=== PATIENT | female | born 1940 | race Caucasian/White ===

== ENCOUNTER → 2019-08-18 | Outpatient (CLI) | payer MEDICARE, BC ==
--- NOTE | 2019-08-18 11:08 | Diagnostic Imaging Report ---
EXAMINATION: Chest 2 view HISTORY: Fall. Left-sided chest and rib pain. COMPARISON: None. FINDINGS: There is elevation of the right hemidiaphragm. Right basilar opacities are present. No large pleural effusion or pneumothorax is seen. The cardiomediastinal silhouette is normal in size and contour. No acute osseous abnormality is seen. Exaggerated kyphosis of the thoracic spine is seen. IMPRESSION: 1. Elevated right hemidiaphragm with right basilar opacities. These may represent atelectasis and/or infection. No evidence of large pleural effusion or pneumothorax. Dictated by: Dictated on workstation # [id number]
--- NOTE | 2019-08-18 11:08 | Diagnostic Imaging Report ---
INDICATION: Fall with neck pain. TIME OF EXAM 10:46 AM FINDINGS: Cervicothoracic alignment appears normal. Curvature and alignment are normal. The odontoid appears intact. Prevertebral tissues are within normal limits for generalized cervical spondylosis with variable disc space narrowing and spurring. No fractures are seen. IMPRESSION: Cervical spondylosis. No acute bony abnormality is detected. Dictated by: Dictated on workstation # [id number]
== END ==
LOC: RAD FS 10:29
PROVIDERS: ATTEND Emergency Medicine
DX: S20.219A Contusion of unspecified front wall of thorax, initial encounter (principal); M47.812 Spondylosis without myelopathy or radiculopathy, cervical region; R91.8 Other nonspecific abnormal finding of lung field; W19.XXXA Unspecified fall, initial encounter
CPT/HCPCS: 71046; 72040

== ENCOUNTER → 2021-04-16 | Outpatient (CLI) | payer MEDICARE, BC ==
--- NOTE | 2021-04-16 13:34 | Diagnostic Imaging Report ---
PROCEDURE: CT head without contrast. TECHNIQUE: Multiple contiguous axial images were obtained through the brain without the use of intravenous contrast. Auto Exposure Controls were utilized during the CT exam to meet ALARA standards for radiation dose reduction. INDICATION: Acute intractable headache. COMPARISON: None available. FINDINGS: Age-appropriate volume loss. No intracranial hemorrhage. No intracranial mass, mass effect, midline shift, herniation, hydrocephalus, or extra-axial fluid collection. No CT evidence of an acute ischemic infarction. The bilateral ocular lenses are absent. Mild background vascular calcifications. The calvarium and extra calvarial soft tissues are otherwise unremarkable. The paranasal sinuses are clear. Mild expansion of the sella is noted with a partially empty sella identified. IMPRESSION: No acute intracranial abnormality with age-appropriate volume loss and background vascular calcifications identified. Partially empty sella is incidentally noted. Dictated by: Dictated on workstation # [id number]
== END ==
LOC: RAD FS 12:49
PROVIDERS: ATTEND Family Medicine
DX: G31.1 Senile degeneration of brain, not elsewhere classified (principal)
CPT/HCPCS: 70450

== ENCOUNTER → 2022-06-29 | Outpatient (CLI) | payer MEDICARE, BC ==
[~2022-06-29] MED LIST: GADOTERATE 0.5 MMOL/ML (CLARISCAN) 20 ML VIAL IV ONE
--- NOTE | 2022-06-29 15:23 | Diagnostic Imaging Report ---
MRI brain with and without contrast Technique: Multiplanar, multisequence MRI of the brain was performed with and without contrast. Indication: Headaches. Comparison: CT head, 04/16/2021. Findings: The diffusion series demonstrates no restriction to suggest acute ischemia. There is no MR evidence of acute intracranial hemorrhage. There is no evidence of intracranial mass effect or shift. Age-appropriate global cerebral volume loss is demonstrated. There are mild background chronic microvascular ischemic changes demonstrated within the subcortical and periventricular white matter. There is a small lacune within the deep white matter of the left frontal lobe. Jones and white matter signal characteristics are otherwise unremarkable. There is no abnormal extra-axial fluid collection. The ventricles are appropriate in size and configuration. The basilar cisterns are patent. Pituitary gland and pineal region appear normal. There is normal alignment of the craniocervical junction. No acute posterior fossa abnormality is demonstrated. There is no evidence of pathologic intracranial enhancement. The mastoids are clear. The paranasal sinuses are clear. The orbital contents are unremarkable. Expected arterial and dural venous sinus flow voids appear preserved. Impression: 1. No MR evidence of an acute intracranial abnormality. There is no evidence of acute ischemia, hemorrhage, intracranial mass effect, hydrocephalus, or pathologic intracranial enhancement. 2. Age-appropriate global cerebral volume loss. Mild chronic microvascular ischemic changes are demonstrated throughout the white matter. Dictated by: Dictated on workstation # [id number]
== END ==
LOC: RAD 13:20
PROVIDERS: ATTEND Family Medicine
DX: I67.89 Other cerebrovascular disease (principal); Z82.49 Family history of ischemic heart disease and other diseases of the circulatory system
CPT/HCPCS: 70553

== ENCOUNTER → 2022-07-01 | Outpatient (CLI) | payer MEDICARE, BC | LOC: CARDFS 09:33 | PROVIDERS: ATTEND Internal Medicine Cardiovascular Disease | DX: I08.0 Rheumatic disorders of both mitral and aortic valves (principal); I11.9 Hypertensive heart disease without heart failure; I25.10 Atherosclerotic heart disease of native coronary artery without angina pectoris | CPT/HCPCS: 93306 ==

== ENCOUNTER → 2022-07-14 | Outpatient (CLI) | payer MEDICARE, BC ==
[~2022-07-14] VITALS: Ht 165 cm; Wt 105.0 kg
[~2022-07-14] MED LIST changes: -GADOTERATE 0.5 MMOL/ML (CLARISCAN) 20 ML VIAL IV ONE; +REGADENOSON 0.4 MG/5 ML SYR (LEXISCAN) IV ONE
[2022-07-14] MEDS: CATHETER FLUSH 10 ML SYR IVP PRN ×2 (12:29→13:33)
[2022-07-14 13:33] VITALS: BP 126/79
--- NOTE | 2022-07-14 15:44 | Cardiology Stress Test Report ---
Stress Test Report Date of Procedure/Referring: Date of Procedure: July 14, 2022 PCP Kem Damico MD Admitting Physician Admitting Physician: Attending Physician: Darek Jon MD Indications: CP Baseline Heart Rate: 80 Baseline Blood Pressure: Blood Pressure Systolic: 126 Blood Pressure Diastolic: 79 Baseline Vitals Vital Signs Date Time Temp Pulse Resp B/P (MAP) Pulse Ox O2 Delivery O2 Flow Rate FiO2 07/14/22 13:33 83 16 126/79 (95) 95 Room Air Baseline EKG: Baseline EKG: NSR Summary After explaining the procedure to the patient, she signed a consent and then brought to the stress nuclear laboratory. Patient received 0.4 mg Lexiscan for stress test, ECG, heart rate and blood pressure were monitored continuously. Resting and stress dose of radio tracer were injected, imaging was acquired and reviewed in short axis, horizontal long axis and vertical long axis views. TID: 1.02 SSS: 2 SDS: 2 EF: 65 Patient tolerated Lexiscan well No significant ischemia or infarction on SPECT images Normal left ventricular size, ejection fraction 65% Copy Copies To 1: KEM DAMICO MD, BASHAR J MD July 14, 2022 15:44
== END ==
LOC: CARD 12:45
PROVIDERS: ATTEND Internal Medicine Cardiovascular Disease
DX: I10 Essential (primary) hypertension (principal); I25.10 Atherosclerotic heart disease of native coronary artery without angina pectoris; R07.2 Precordial pain
CPT/HCPCS: 78452; 93017; A9502

== ENCOUNTER 2023-02-04 08:46 | Emergency (ER) | payer MEDICARE, BC ==
[~2023-02-04] VITALS: Ht 162.6 cm; Wt 128.4 kg
[~2023-02-04 08:46] MED LIST changes: +APIX5TAB PO; -REGADENOSON 0.4 MG/5 ML SYR (LEXISCAN) IV ONE
[2023-02-04] MEDS ORDERED: oxyCODONE IMMEDIATE RELEASE 5 MG TABLET PO ONE (09:00)
--- NOTE | 2023-02-04 09:02 | ED Fall/Injury ---
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 She has left hip and ankle pain. She is up-to-date on tetanus. She takes no blood thinners. She did not hit her head, denies any headache, neck pain, or back pain. She states the fall was actually quite gentle. Allergies and Home Medications Allergies Coded Allergies: No Known Drug Allergies (Unverified , 06/29/22) Patient Home Medication List Home Medication List Reviewed: Yes Apixaban (Eliquis) 5 Mg Tablet, 10 MG PO BID Prescribed by: PRIYANKA ANDERSON on 11/27/22 2681 Review of Systems Review of Systems Constitutional: No fever Eyes: No Symptoms Reported Ears, Nose, Mouth, Throat: no symptoms reported Respiratory: no symptoms reported Cardiovascular: no symptoms reported Gastrointestinal: no symptoms reported Genitourinary: no symptoms reported Musculoskeletal: see HPI Skin: see HPI Psychiatric/Neurological: No Symptoms Reported Past Dcpwmjl-Adjfxn-Lvqtuv Hx Patient Social History Tobacco Use?: No Substance use?: No Alcohol Use?: No Past Medical History Surgery/Hospitalization HX: CAD, Hypertension, Diet controlled Diabetes, Right AKA Surgeries: Yes Coronary Stent, Orthopedic Physical Exam Vital Signs Vital Signs - First Documented 02/04/23 08:48 Temp 36.4 Pulse 124 Resp 18 B/P (MAP) 132/113 (119) O2 Delivery Room Air Capillary Refill : Height, Weight, BMI Height: '" Weight: lbs. oz. kg; 40.00 BMI Method: General Appearance: WD/WN, no apparent distress HEENT: PERRL/EOMI, normal ENT inspection, pharynx normal Neck: non-tender, full range of motion, supple, normal inspection Cardiovascular: regular rate, rhythm, no edema Respiratory: chest non-tender, lungs clear, normal breath sounds, no respiratory distress, no accessory muscle use Gastrointestinal: normal bowel sounds, non tender, soft; No distended, No guarding, No rebound Back: normal inspection, no CVA tenderness Extremities: normal range of motion, non-tender, normal inspection, no pedal edema, no calf tenderness, normal capillary refill 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, no motor/sensory deficits, a lert, normal mood/affect, oriented x 3 Skin: normal color, warm/dry, other (4cm subcutaneous laceration to the left lateral tripp) [place] Coma Score Best Eye Response: (4) Open Spontaneously Best Verbal Response: (5) Oriented Best Motor Response: (6) Obeys Commands Procedures/Interventions Wound Location: Lower Extremities Other Wound Location left lateral tripp Wound Length (cm): 4 Wound's Depth, Shape: sub Q Wound Explored: clean Irrigated w/ Saline (ccs): 500 Anesthesia: Lidocaine w/ Epi Volume Anesthetic (ccs): 8 Suture: Ethlion Suture Size: 4-0 Other Closure Supply: Steri Strip /" Number of Sutures: 1 Progress A single running stitch was utilized with 17 passes Progress/Results/Core Measures Results/Orders My Orders Orders - VANNESA GARCIA MD Ankle 3 View Left (02/04/23 08:56) Pelvis With Left Hip 2-3 View (02/04/23 08:56) Tibia Fibula 2 View Left (02/04/23 08:56) Oxycodone Immediate Rel Tablet (Oxycodon (02/04/23 09:00) Ekg Tracing (02/04/23 09:02) Medications Given in ED Current Medications Medications Dose Ordered Sig/Margaret Route Start Time Stop Time Status Last Admin Dose Admin Oxycodone HCl 5 mg ONCE ONCE PO 02/04/23 09:00 02/04/23 09:01 DC 02/04/23 09:06 5 MG Vital Signs/I&O 02/04/23 08:48 Temp 36.4 Pulse 124 Resp 18 B/P (MAP) 132/113 (119) O2 Delivery Room Air Progress Progress Note : Progress Note 83-year-old female with above history coming in due to a gentle fall where her left leg went to cross the sharp part of her wheelchair causing a 4 cm laceration to left lateral leg. She is neurovascularly intact in the lower extremity. She is little tachycardic but in pain, given oxycodone for this. X- ray of the pelvis, left hip, left tib-fib, left ankle ordered and interpreted by me showing no fracture or dislocation that is new. Tetanus is up-to-date. The area was cleaned, lidocaine infiltrated, closed with a single running suture with reinforcement from the Steri-Strips. Patient tolerated this well. She never really hit her head or neck, and never really fell with any type of force that would make me want to get a CT of her head or C-spine. Additionally she is not on blood thinners. I believe she is stable for discharge with outpatient follow-up. She was sent home with strict return precautions. Initial ECG Impression Date: Feb 04, 2023 Initial ECG Impression Time: 10:21 Initial ECG Rate: 117 Initial ECG Rhythm: S.Tach Comment Narrow QRS, normal axis, no STEMI Diagnostic Imaging Diagonstic Imaging: Xray (pelvis/left hip, left tib fib, left ankle) Comments [facility] [employer] [place], [place] NAME: EMETERIO KELLER [facility] REC#: [id number] PT STATUS: REG ER : 1940 PHYSICIAN: VANNESA GARCIA MD ADMIT DATE: 02/04/23/ER FS Draft Date of Exam:02/04/23 ANKLE 3 VIEW LEFT HISTORY: Fall, left ankle pain TECHNIQUE: 3 views of the left ankle COMPARISON: None FINDINGS: There is diffuse osteopenia. No acute fracture seen in the left ankle. Alignment is normal. Ankle mortise is symmetric. There is ifhrlana-fn-tnqzvq soft tissue swelling about the left ankle. There are degenerative changes in the midfoot. IMPRESSION: 1. Degenerative changes and low bone density in the left ankle with no acute osseous abnormality seen. 2. Soft tissue swelling about the left ankle. Dictated on workstation # [id number] Dict: 02/04/23 0956 Trans: 02/04/23 1003 LORA [id number] Interpreted by: ZACARIAS RODRIGUEZ MD Electronically signed by: [facility] [employer] [place] NAME: EMETERIO KELLER [facility] REC#: [id number] PT STATUS: REG ER : 1940 PHYSICIAN: VANNESA GARCIA MD ADMIT DATE: 02/04/23/ER FS Draft Date of Exam:02/04/23 TIBIA FIBULA 2 VIEW LEFT HISTORY: Fall, left leg laceration. TECHNIQUE: 2 views of the left tibia and fibula. COMPARISON: None FINDINGS: No acute fracture seen in the left tibia and fibula. Alignment is normal. There is a left total knee arthroplasty as well as an intramedullary fixation of the femur with chronic posttraumatic deformity of the femur. 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 There is moderate soft tissue swelling about the left leg with a laceration of the lateral left leg and soft tissue gas. There is overlying skin blistering. No radiopaque foreign body is seen. IMPRESSION: 1. Lateral left leg laceration and soft tissue gas with no acute osseous abnormality or radiopaque foreign body seen. Dictated on workstation # [id number] Dict: 02/04/23 0957 Trans: 02/04/23 1005 CV [id number] Interpreted by: ZACARIAS RODRIGUEZ MD Electronically signed by: [facility] [place] [place] NAME: EMETERIO KELLER [facility] REC#: [id number] PT STATUS: REG ER : 1940 PHYSICIAN: VANNESA GARCIA MD ADMIT DATE: 02/04/23/ER FS Draft Date of Exam:02/04/23 PELVIS WITH LEFT HIP 2-3 VIEW HISTORY: Fall, left hip pain. TECHNIQUE: Frontal view of the pelvis. Frontal and lateral views of the left hip. COMPARISON: CT abdomen and pelvis from 11/27/2022. FINDINGS: Bone density is diffusely low. There are severe degenerative changes in the left hip joint and moderate degenerative change in the right hip joint. No acute fracture is seen. There is posterior fusion of the lumbosacral spine, extending into the sacroiliac joints. There is partially seen intramedullary fixation of the left femur, with old fracture deformity in the diaphysis. IMPRESSION: 1. Degenerative changes in the hips, left greater than right, with no acute fracture seen in the left hip. 2. Postsurgical changes in the lumbosacral spine and left femur. Dictated on workstation # [id number] Dict: 02/04/23 0952 Trans: 02/04/23 1004 [facility] [id number] Interpreted by: ZACARIAS RODRIGUEZ MD Electronically signed by: Departure Impression Primary Impression: Fall Qualified Codes: W19.XXXA - Unspecified fall, initial encounter Additional Impression: Leg laceration Qualified Codes: S81.812A - Laceration without foreign body, left lower leg, initial encounter Disposition: HOME, SELF-CARE Condition: Stable Departure-Patient Inst. Decision time for Depature: 10:20 Referrals: SHAMA WALLACE MD (PCP/Family) Primary Care Physician Patient Instructions: Laceration Repair With Stitches ED Add. Discharge Instructions: Try to keep the area generally clean and do not submerge it in any type of water. If the Steri-Strips fall off, you can put on bacitracin ointment or some other antibiotic ointment that you would like. The stitches need to come out in 10 to 14 days and you can come back here or go to your regular doctor for that. Take Tylenol as needed for pain or your home oxycodone. Fortunately nothing is broken or dislocated on all the x-rays. Scripts Nystatin (Nystatin) 100,000 Unit/Gram Powder 1 APPLIC TP BID for 30 Days, #60 GM Prov: VANNESA GARCIA MD 02/04/23 VANNESA GARCIA MD Feb 04, 2023 09:02
--- NOTE | 2023-02-04 10:03 | Diagnostic Imaging Report ---
HISTORY: Fall, left ankle pain TECHNIQUE: 3 views of the left ankle COMPARISON: None FINDINGS: There is diffuse osteopenia. No acute fracture seen in the left ankle. Alignment is normal. Ankle mortise is symmetric. There is rhjawtlz-qm-heijff soft tissue swelling about the left ankle. There are degenerative changes in the midfoot. IMPRESSION: 1. Degenerative changes and low bone density in the left ankle with no acute osseous abnormality seen. 2. Soft tissue swelling about the left ankle. Dictated by: Dictated on workstation # [id number]
--- NOTE | 2023-02-04 10:05 | Diagnostic Imaging Report ---
HISTORY: Fall, left hip pain. TECHNIQUE: Frontal view of the pelvis. Frontal and lateral views of the left hip. COMPARISON: CT abdomen and pelvis from 11/27/2022. FINDINGS: Bone density is diffusely low. There are severe degenerative changes in the left hip joint and moderate degenerative change in the right hip joint. No acute fracture is seen. There is posterior fusion of the lumbosacral spine, extending into the sacroiliac joints. There is partially seen intramedullary fixation of the left femur, with old fracture deformity in the diaphysis. IMPRESSION: 1. Degenerative changes in the hips, left greater than right, with no acute fracture seen in the left hip. 2. Postsurgical changes in the lumbosacral spine and left femur. Dictated by: Dictated on workstation # [id number]
--- NOTE | 2023-02-04 10:06 | Diagnostic Imaging Report ---
HISTORY: Fall, left leg laceration. TECHNIQUE: 2 views of the left tibia and fibula. COMPARISON: None FINDINGS: No acute fracture seen in the left tibia and fibula. Alignment is normal. There is a left total knee arthroplasty as well as an intramedullary fixation of the femur with chronic posttraumatic deformity of the femur. 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 There is moderate soft tissue swelling about the left leg with a laceration of the lateral left leg and soft tissue gas. There is overlying skin blistering. No radiopaque foreign body is seen. IMPRESSION: 1. Lateral left leg laceration and soft tissue gas with no acute osseous abnormality or radiopaque foreign body seen. Dictated by: Dictated on workstation # [id number]
[2023-02-04] MEDS ORDERED: NYST15PO4 TP (11:04)
[2023-02-04 11:15] VITALS: BP 134/69
== END 2023-02-04 11:15 | disposition home or self-care (01) ==
LOC: EDUNIT# 08:46 → ER FS 08:47
DX: S81.812A Laceration without foreign body, left lower leg, initial encounter (principal); W18.40XA Slipping, tripping and stumbling without falling, unspecified, initial encounter
CPT/HCPCS: 73502; 73590; 73610; 93005